=== PATIENT | female | born 2000 | race Hispanic/Latino ===

== ENCOUNTER 2019-04-22 11:16 | Inpatient (IN) | payer OTHER ==
[2019-04-22 11:52] VITALS: BMI 32.8
[2019-04-22] MEDS ORDERED: hydrALAZINE 20 MG/ML VIAL SLOW IVP PRN ×2 (12:02→15:06)
--- NOTE | 2019-04-22 12:27 | PDOC.FPROB ---
FMR OB H&P: HPI - History of Present Illness Chief Complaint: contractions Indentification: 18 yo G1 @ 40 weeks by LMP 9.5 sono History of Present Illness: 18 yo @ 40 weeks by LMP c/w 9.5 week sono presents for painful contractions that started last evening. Pt reports increase in contraction strenght and frequency since 5 am. Ctx every 5 min. Reports pos movement, denies LOF, bleeding, discharge. Primary Care Physician: Steve FMR OB H&P: Current - Care : 1 Para: 0 Gestational age: 40 Due date: 04/22/2019 Dating Criteria: LMP c/w 9.5 sono Total weight gain: 43 lbs Course/Complications: Excessive weight gain in - OB Labs Blood type: A RH: positive Antibody Screen: negative HIV: negative RPR: negative HepBsAg: negative Rubella: immune Quad screen: negative Urine drug screen: not done Gonorrhea: negative Chlamydia: negative Pap Smear: restaurant manager 1 hour gtt: 88 GBS: negative - First Trimester Ultrasound First trimester: LMP c/w dates. 9.5 sono. - Anatomy Survey Anatomy survey: Normal, female FMR OB H&P: History - Past Medical History PMH: None - OB History OB History: First - [employer] History [employer] History: Menses @ 11, regular cycle - Surgical History Sx History: None - Social History Social History: Denies alcohol, tobacco and drug use FMR OB H&P: Medications - Current Home Medications: Medication Instructions Recorded Confirmed Type Ferrous Sulfate [Iron] 325 mg PO DAILY 04/22/19 04/22/19 History Pnv No.95/Ferrous Fum/Folic AC 1 each PO DAILY 04/22/19 04/22/19 History [ [place]] Allergies/Adverse Reactions: Allergies Allergy/AdvReac Type Severity Reaction Status Date / Time No Known Allergies Allergy Unverified 04/22/19 11:52 FMR OB H&P: ROS - Review of Systems General: denies: fever/chills, night sweats Eyes: denies: vision changes ENT: denies: nasal congestion, rhinorrhea Cardiovascular: denies: chest pain, paroxysmal nocturnal dyspnea Respiratory: denies: cough, congestion, shortness of breath Gastrointestinal: denies: abdominal pain, cramping, nausea, vomiting, diarrhea, constipation Genitourinary (Female): denies: vaginal pain, vaginal bleeding, vaginal pressure Musculoskeletal: denies: pain Neurologic: denies: syncope, weakness FMR OB H&P: Vital Signs - Maternal Vital signs: Vital Signs - First Documented Temp Pulse Resp BP Pulse Ox 98.3 F 91 18 124/80 98 04/22/19 11:49 04/22/19 11:49 04/22/19 11:49 04/22/19 11:49 04/22/19 11:49 - Heart Tones Baseline: 145 Variability: moderate Acceleration: present Deceleration: absent Category: category 1 [place] contractions every: 5-6 min FMR OB H&P: Physical Exam - Physical Exam General: NAD, awake, alert and oriented HEENT: normocephalic and atraumatic, PERRLA, EOMI, grossly normal vision, grossly normal hearing Neck: trachea midline Heart: RRR, normal S1/S2, no murmurs/rubs/gallops, pulses present, no edema General: CTAB, no respiratory distress, good air movement, no rales/rhonchi, no wheezing, no retractions Abdomen: soft, gravid, non-tender Musculoskeletal: FROM in all four extremities Neurological: no focal deficit Skin: no rash - Pelvic Exam SVE: 3/75/0 Membranes: Bulging, intact Presentation: Vertex Estimated Weight: 7 lbs FMR OB H&P: A/P - Problem List (1) Term Current Visit: Yes Status: Acute Code(s): Z34.90 - ENCNTR FOR SUPRVSN OF NORMAL , UNSP, UNSP TRIMESTER Disposition: 1) TIUP with painful contractions - pt debra every 5 min on monitor - will obs and reassess for cervical change in 2 hours. Discussion: Date/Time: 04/22/19 0837 This H&P was discussed with Dr. Carney who agrees with the above documentation and plan. Addendum - Attending - Attending Attestation Date/Time: 04/22/19 2511 I personally evaluated the patient and discussed the management with Dr. Solitario. I agree with the History, Examination, Assessment and Plan documented above.
[2019-04-22] MEDS: Lactated Ringer's 1,000 ML IV SCH ×2 (14:58→18:41)
--- NOTE | 2019-04-22 15:05 | PDOC.EVN ---
Event Note - Event Note Event Note: 2 hour cervical check 4-5cm/100/0, bulging bag pt continues to contract q5 min will admit to l&d Agree with above. Will admit for labor. Watch progress. Expect .
[2019-04-22] MEDS ORDERED: Ibuprofen 800 MG TAB PO PRN (15:06)
[2019-04-22] MEDS ORDERED: Lidocaine 1% (PF) 30 ML VIAL SC PRN (15:06)
[2019-04-22] MEDS ORDERED: Misoprostol 200 MCG TAB PR PRN (15:06)
[2019-04-22] MEDS ORDERED: Docusate 100 MG CAP PO PRN (15:06)
[2019-04-22] MEDS ORDERED: HYDROcodone/Acetaminophen 5/325 mg Tablet PO PRN (15:06)
[2019-04-22] MEDS ORDERED: Ondansetron PF 4 MG/2 ML Vial IVP PRN (15:06)
[2019-04-22] MEDS ORDERED: Promethazine HCl 25 MG/ML VIAL IM PRN (15:06)
[2019-04-22] MEDS ORDERED: NS / Oxytocin 40 units/1000ml 1,000 ML IV PRN (15:06)
[2019-04-22] MEDS ORDERED: NS w/ Oxytocin 10 units 500 ML IV SCH (15:15)
[2019-04-22 15:26] LABS: Hemoglobin 11.3 g/dL (12.0-16.0); Mean Corpuscular HGB CONC 34.5 g/dL (32.0-36.0); Mean Corpuscular Hemoglobin 30.7 pg (25.0-35.0); Mean Corpuscular Volume 88.8 fL (78.0-98.0); Mean Platelet Volume 11.9 fL (7.4-10.4); Platelet Count 160 thou/uL (130-400); RBC Distribution Width 12.3 % (11.5-14.5); Red Blood Cell (RBC) Count 3.68 mill/uL (4.00-5.20); White Blood Cell (WBC) Count 11.6 thou/uL (4.8-10.8)
[2019-04-22 16:00] LABS: HBSAg Index 0.21 S/CO (0-0.99); Hep B Surf Ag Non-Reactive S/CO (NonReactive); Syphilis Antibody Nonreactive (Nonreactive); Syphilis Antibody Index 0.04 S/CO (<1.00 Non-Reactive)
[2019-04-22] MEDS: Butorphanol Tartrate 1 MG/ML VIAL SLOW IVP PRN ×2 (16:44→22:32)
--- NOTE | 2019-04-22 16:49 | PDOC.LDPN ---
Labor & Delivery Progress Note - Subjective Subjective: painful contractions, no concerns - Objective Vital signs reviewed and normal: yes General: resting, breathing through contractions Uterine fundus: non tender Dilation: 6 Effacement: 90% Station: -1 FHT: category 1 (150 baseline pos accels no late or variable decels, cat 1), variability present [place] contractions every: 6 min Procedures: AROM, clear fluid seen. Bedside US confirmed vertex prior to AROM. AROM: clear fluid Resuscitative measures: maternal IV fluids, maternal position change - Assessment (1) Term Code(s): Z34.90 - ENCNTR FOR SUPRVSN OF NORMAL , UNSP, UNSP TRIMESTER Current Visit: Yes Status: Acute Plan: continue plan of care -: 1) TIUP, in labor - AROM, clear fluid seen @ 1635 - cervical check /-1 - fhts cat 1 and ctx every 6 min - cont plan of care, cervical checks q2hr - stadol prn for pain Addendum - Attending - Attending Attestation Date/Time: 04/22/191948 I personally evaluated the patient and discussed the management with Dr. Solitario. I agree with the Assessment and Plan documented above.
--- NOTE | 2019-04-22 18:44 | PDOC.LDPN ---
Labor & Delivery Progress Note - Subjective Subjective: painful contractions, vaginal pressure, no concerns - Objective Vital signs reviewed and normal: yes General: breathing through contractions Uterine fundus: non tender Dilation: 8 Effacement: 100% Station: 0 FHT: category 1 (baseline 155-160), variability present Resuscitative measures: maternal IV fluids, maternal position change - Assessment (1) Term Code(s): Z34.90 - ENCNTR FOR SUPRVSN OF NORMAL , UNSP, UNSP TRIMESTER Current Visit: Yes Status: Acute Plan: continue plan of care -: TIUP, in labor - stadol prn for pain - FHTs cat 1, lo late or variable decelerations - cervical check q2hr + prn, most recent Addendum - Attending - Attending Attestation Date/Time: 04/22/19 8185 I personally evaluated the patient and discussed the management with Dr. Solitario. I agree with the Assessment and Plan documented above.
--- NOTE | 2019-04-22 22:53 | PDOC.LDPN ---
Labor & Delivery Progress Note - Subjective Subjective: painful contractions, no concerns - Objective Vital signs reviewed and normal: yes General: NAD, breathing through contractions Uterine fundus: non tender Dilation: 9 Effacement: 100% Station: 0 FHT: category 1 (baseline 130s pos accels no late or variable decelerations), variability present [facility] contractions every: 7 min Resuscitative measures: maternal IV fluids, maternal position change - Assessment (1) Term Code(s): Z34.90 - ENCNTR FOR SUPRVSN OF NORMAL , UNSP, UNSP TRIMESTER Current Visit: Yes Status: Acute Plan: continue plan of care, pitocin for augmentation -: 1) TIUP in labor - Pts contractions have diminished in strength and frequency - previous cervical check by nurse 9/100/0 - she is unchanged from previous exam and remains 9/100/0 after 2 hours - will begin pitocin for augmentation - recheck cervix q2hr and prn - consider IUPC if ctx pattern difficult to monitor - stadol prn for pain Addendum - Attending - Attending Attestation Date/Time: 04/22/19 6633 I personally evaluated the patient and discussed the management with Dr. Solitario. Agree with pitocin due to poor progress and spacing UCs. I agree with the Assessment and Plan documented above.
--- NOTE | 2019-04-23 02:51 | PDOC.EVN ---
Event Note - Event Note Event Note: Called to assist with delivery for Dr. Carney while he was attending another. with protracted active stage and pushing ~1:45 upon my arrival with most recently category 2 FHTs, variable decels with pushing, mod variability. subsequently delivered atraumatically, straight OA. Placed skin to skin and cried after drying. Cord clamped and cut and blood sampled. Placenta delivered via CCT, intact, 3vc. Uterus firmed with IV pitocin and bimanual massage. Difficulty with inspecting laceration d/t significant pain with exam. Will plan to move to OR with anesthesia and Dr. Carney for exam and repair.
[2019-04-23] MEDS ORDERED: MORPHINE 5 MG/10 ML PF VIAL ONE (03:01)
[2019-04-23] MEDS ORDERED: Fentanyl 100 MCG/2 ML VIAL ONE (03:01)
[2019-04-23] MEDS ORDERED: PHENYLEPHRINE-NS 100 MCG/ML 10 ML SYRINGE ONE (03:02)
[2019-04-23] MEDS ORDERED: ePHEDrine/0.9% NaCl/PF SYRINGE 50 mg/10 ml ONE (03:02)
[2019-04-23] MEDS ORDERED: Midazolam HCl 2 mg/2 ml Vial ONE (03:02)
[2019-04-23] MEDS ORDERED: Dexamethasone 4 mg/ml Vial ONE (03:31)
[2019-04-23] MEDS ORDERED: Ondansetron PF 4 MG/2 ML Vial ONE ×2 (03:31→07:48)
[2019-04-23] MEDS ORDERED: Ketorolac Tromethamine 30 MG/ML VIAL ONE ×2 (03:33→07:48)
[2019-04-23] MEDS ORDERED: Ondansetron HCl/PF 4 MG/2 ML Vial IVP PRN (03:38)
[2019-04-23] MEDS ORDERED: Naloxone HCl 0.4 mg/ml Vial IVP PRN ×2 (03:38)
[2019-04-23] MEDS ORDERED: Meperidine HCl/PF 25 MG/ML VIAL SLOW IVP PRN (03:38)
[2019-04-23] MEDS ORDERED: L&D-Morphine 4 MG/ML VIAL SLOW IVP PRN (03:38)
[2019-04-23] MEDS ORDERED: Ketorolac Tromethamine 30 MG/ML VIAL IVP PRN (03:38)
[2019-04-23] MEDS ORDERED: HYDROmorphone 2 MG/ML VIAL SLOW IVP PRN (03:38)
[2019-04-23] MEDS ORDERED: diphenhydrAMINE 50 MG/ML VIAL IVP PRN (03:38)
[2019-04-23] MEDS ORDERED: Ondansetron PF 4 MG/2 ML Vial IVP PRN (03:38)
[2019-04-23] MEDS ORDERED: Promethazine HCl 25 MG SUPP PR PRN (03:38)
[2019-04-23] MEDS ORDERED: Promethazine HCl 25 MG/ML VIAL IM PRN (03:38)
[2019-04-23] MEDS ORDERED: Naloxone HCl 0.4 mg/ml Vial IV PRN (03:38)
[2019-04-23] MEDS ORDERED: Communication Order-Pharmacy FS SCH (03:45)
[2019-04-23] MEDS ORDERED: CEFAZOLIN 1 GM VIAL ONE (03:59)
[2019-04-23] MEDS ORDERED: Oxytocin 10 UNITS/ML VIAL ONE (04:01)
--- NOTE | 2019-04-23 05:41 | OP ---
DATE OF PROCEDURE: 04/23/2019 PREOPERATIVE DIAGNOSIS: Vaginal lacerations, status post vaginal delivery. POSTOPERATIVE DIAGNOSIS: Third-degree laceration with stellate vaginal lacerations. PROCEDURE: Repair of the vagina. HAT BLOCK BENCH HAND SURGEON: Dr. Nichols and Dr. Solitario. ANESTHESIA: Spinal. ESTIMATED BLOOD LOSS: 200 mL. COMPLICATIONS: None. FINDINGS: 1. Intact rectal mucosa. 2. Third-degree disruption of the sphincter. 3. Stellate laceration of the distal vagina. TECHNIQUE IN DETAIL: After good spinal anesthesia was achieved, the patient was prepped and draped in usual sterile fashion. The patient could be examined at this time. It could be seen that the rectum was intact. The sphincter was disrupted and there was a stellate laceration of the vaginal floor. The third-degree laceration was repaired in segments using 2-0 Vicryl suture. The vaginal lacerations were exposed and then were closed using running locking suture of 2-0 chromic. Once the vagina was closed, the sub mucosa of the vagina was closed using a running suture of chromic. The final layer was closed in an interrupted fashion using 2-0 chromic. At the end of the case, a rectal was done and there was no evidence of defect. A Rooney catheter was placed. The vagina was seen to be hemostatic and the patient was taken back to Labor and Delivery in good condition. Job ID: [id number] [facility]
--- NOTE | 2019-04-23 06:33 | OP ---
DATE OF PROCEDURE: 04/23/2019 REPORT TYPE: Vaginal Delivery Note. LOCATION: [place], [place]. DELIVERING PHYSICIANS: 1. Dr. Jason Carney. 2. Dr. Bertin Solitario. 3. Dr. Jae Maria. 4. Dr. Floyd Nichols. PROCEDURES: Spontaneous vaginal delivery. ANESTHESIA: Spinal with conscious sedation for repair of complicated third-degree laceration. ESTIMATED BLOOD LOSS: 750 mL. PREOPERATIVE DIAGNOSES: 1. Term intrauterine in labor. 2. Excessive weight gain in . POSTOPERATIVE DIAGNOSES: 1. Term intrauterine , delivered. 2. Excessive weight gain in . INDICATIONS: The patient is a 18-year-old female, G1, P0, who presents in active labor. DELIVERY NOTE: The patient is a 18-year-old, G1, P0, at 40.1 weeks, who delivered a viable female infant at 0229. Following an uneventful antepartum course, a vigorous female was delivered over an intact perineum in the occipitoanterior position. The anterior shoulder and the remainder of the body delivered. There was a nuchal cord x1. The head was held down and the mouth was bulb suctioned and vigorous stimulation was applied to the infant. At this point, the cord was clamped and cut and cord blood was collected. The placenta delivered intact with three-vessel cord noted. Fundal massage was performed and the uterus is firm. The cervix and vagina were inspected, the cervix was found to be free of lacerations and there was a third-degree perineal laceration with stellate vaginal extensions inward. The patient was taken to the OR and spinal anesthesia was administrated for repair of a third-degree laceration. The infant went to nursery in good condition for routine care. Apgars were eight and nine at 1 and 5 minutes respectively. The patient tolerated delivery and repair well and will stay in Labor and Delivery for continued recovery with a Rooney to remain in place and prophylactic antibiotics including Ancef 2 g q.8 hours will be given. Job ID: [id number] Dr. Nichols was present to attend this delivery as I was delivering another pt. at the same time. [facility]
[2019-04-23] MEDS ORDERED: Benzocaine-Menthol 82.5 ML CAN TOP PRN (06:57)
[2019-04-23] MEDS ORDERED: Bisacodyl 10 MG SUPP PR PRN (06:57)
[2019-04-23] MEDS ORDERED: NS / Oxytocin 40 units/1000ml 1,000 ML IV SCH (06:57)
[2019-04-23] MEDS ORDERED: hydrALAZINE 20 MG/ML VIAL SLOW IVP PRN (06:57)
[2019-04-23] MEDS ORDERED: HYDROcodone/Acetaminophen 5/325 mg Tablet PO PRN ×2 (06:57)
[2019-04-23] MEDS ORDERED: Misoprostol 200 MCG TAB VAG PRN (06:57)
[2019-04-23] MEDS ORDERED: Milk Of Magnesia 30 ML UDCUP PO PRN (06:57)
[2019-04-23] MEDS ORDERED: Dexamethasone 20 MG/5 ML VIAL ONE (07:48)
[2019-04-23] MEDS: Ibuprofen 800 MG TAB PO SCH ×3 (09:36→22:09)
[2019-04-23] MEDS: Docusate Calcium (SURFAK) 240 MG CAP PO SCH ×2 (09:37→22:09)
[2019-04-23] MEDS: ceFAZolin 1 GM/D5W 1 GM in Premix Bag 1 BAG IVPB SCH ×2 (13:11→22:37)
[2019-04-23] MEDS: Ferrous Sulfate 325 MG TAB PO SCH ×2 (17:19→17:20)
[2019-04-23] MEDS: Lactated Ringer's 1,000 ML IV SCH (17:19)
[2019-04-23] MEDS ORDERED: Sodium Chloride 0.9% 10 ML ONE (21:58)
[2019-04-24] MEDS: Lactated Ringer's 1,000 ML IV SCH ×4 (00:55→21:49)
[2019-04-24] MEDS ORDERED: Sodium Chloride 0.9% 10 ML ONE (05:42)
[2019-04-24 05:57] LABS: Hemoglobin 8.2 g/dL (12.0-16.0); Mean Corpuscular HGB CONC 34.1 g/dL (32.0-36.0); Mean Corpuscular Hemoglobin 31.4 pg (25.0-35.0); Mean Corpuscular Volume 91.9 fL (78.0-98.0); Mean Platelet Volume 11.6 fL (7.4-10.4); Platelet Count 119 thou/uL (130-400); RBC Distribution Width 12.6 % (11.5-14.5); White Blood Cell (WBC) Count 13.5 thou/uL (4.8-10.8)
[2019-04-24] MEDS: ceFAZolin 1 GM/D5W 1 GM in Premix Bag 1 BAG IVPB SCH ×3 (05:59→21:48)
[2019-04-24] MEDS: Ibuprofen 800 MG TAB PO SCH ×3 (06:03→21:48)
[2019-04-24] MEDS ORDERED: Adacel (T-DAP) 0.5 ML SYRINGE IM ONE (06:57)
--- NOTE | 2019-04-24 07:47 | PDOC.PP ---
Post Progress Note Post Day #: 1 Subjective: 18 yo G1 now P1 pp day 1 s/p w/ 3rd degree perineal laceration with stellate posterior vaginal extensions. She is doing well and reports her pain is well controlled. She has had velasco removed, no urine since velasco removal. Ambulating and tolerating PO. PO intake tolerated: yes Flatus: yes Ambulation: yes Vital Signs (12 hours) Temp Pulse Resp BP 04/24/19 00:45 98.5 F 72 18 110/65 04/23/19 20:11 98.4 F 89 18 120/76 Weight Weight 76.204 kg - Physical Examination General: NAD Cardiovascular: no m/r/g, RRR Respiratory: clear to auscultation bilaterally, non-labored breathing Abdominal: + bowel sounds, no distention, appropriately TTP Extremities: negative homans (B) Neurological: no gross focal deficits Psychiatric: normal affect Result Diagrams: 04/24/19 04:37 Additional Labs: Post Labs Blood Type A POSITIVE 04/22/19 15:37 Hep Bs Antigen Non-Reactive S/CO (NonReactive) 04/22/19 15:02 (1) Term Code(s): Z34.90 - ENCNTR FOR SUPRVSN OF NORMAL , UNSP, UNSP TRIMESTER Status: Resolved (2) Third degree laceration of perineum during delivery, Code(s): O70.20 - THIRD DEGREE PERINEAL LACERATION DURING DELIVERY, UNSP Status: Acute - Assessment/Plan 1) w/ 3rd degree perineal laceration - velasco out yesterday - will cont bowel regimen and monitor today - plan for possible dc to home tomorrow - no urine since velasco removal, will monitor IsOs - reports pain well controlled Addendum - Attending - Attending Attestation Date/Time: 04/25/19 9135 I personally evaluated the patient and discussed the management with Dr. Solitario I agree with the History, Examination, Assessment and Plan documented above with any addition or exceptions noted below.
[2019-04-24] MEDS: Ferrous Sulfate 325 MG TAB PO SCH ×2 (09:34→17:34)
[2019-04-24] MEDS: Docusate Calcium (SURFAK) 240 MG CAP PO SCH ×2 (09:34→21:48)
[2019-04-25] MEDS: Ibuprofen 800 MG TAB PO SCH (06:40)
[2019-04-25] MEDS: Lactated Ringer's 1,000 ML IV SCH (07:16)
--- NOTE | 2019-04-25 08:27 | PDOC.PP ---
Post Progress Note Post Day #: 2 Subjective: 18 yo G1 now P1 pp day 2 s/p w/ 3rd degree perineal laceration. Pt doing well and reports pain controlled with current ibuprofen and tylenol. Normal voiding, passing flatus, ambulating and tolerating PO. PO intake tolerated: yes Flatus: yes Ambulation: yes Weight Weight 76.204 kg - Physical Examination General: NAD Cardiovascular: no m/r/g, RRR Respiratory: clear to auscultation bilaterally, non-labored breathing Abdominal: + bowel sounds, no distention, appropriately TTP Neurological: no gross focal deficits Psychiatric: normal affect Result Diagrams: 04/24/19 04:37 Additional Labs: Post Labs Blood Type A POSITIVE 04/22/19 15:37 Hep Bs Antigen Non-Reactive S/CO (NonReactive) 04/22/19 15:02 (1) Term Code(s): Z34.90 - ENCNTR FOR SUPRVSN OF NORMAL , UNSP, UNSP TRIMESTER Status: Resolved (2) Third degree laceration of perineum during delivery, Code(s): O70.20 - THIRD DEGREE PERINEAL LACERATION DURING DELIVERY, UNSP Status: Acute - Assessment/Plan 1) w/ 3rd degree perineal laceration - will plan to dc to home today with bowel regimen - pain control with cont ibuprofen and tylenol, has not required narcotics - f/u PNC 1 week - undecided PP CC Addendum - Attending - Attending Attestation Date/Time: 04/26/19 0850 I evaluated the patient and discussed the management with Dr. Solitario. I agree with the History, Examination, Assessment and Plan documented above.
[2019-04-25 08:59] VITALS: BP 122/73; TEMP 98.2
[2019-04-25] MEDS: Ferrous Sulfate 325 MG TAB PO SCH (09:16)
[2019-04-25] MEDS: Docusate Calcium (SURFAK) 240 MG CAP PO SCH (09:16)
== END 2019-04-25 13:10 | disposition home or self-care (01) | DRG 768 ==
LOC: L&D/OP 11:16 → L&D 14:33 → 3SW 04-23 17:10
PROVIDERS: ADMIT Obstetrics & Gynecology; ATTEND Obstetrics & Gynecology
PROC: 10E0XZZ Delivery of Products of Conception, External Approach (ICD-10-PCS; principal; 2019-04-23)
PROC: 0DQR0ZZ Repair Anal Sphincter, Open Approach (ICD-10-PCS; 2019-04-23)
PROC: 10907ZC Drainage of Amniotic Fluid, Therapeutic from Products of Conception, Via Natural or Artificial Opening (ICD-10-PCS; 2019-04-23)
DX: O69.81X0 Labor and delivery complicated by cord around neck, without compression, not applicable or unspecified (principal); Z37.0 Single live birth; O70.20 Third degree perineal laceration during delivery, unspecified; Z3A.40 40 weeks gestation of pregnancy
CPT/HCPCS: 36415; 85027; 86780; 86850; 86900; 86901; 87340; J0595; J0690; J1100; J1885; J2001; J2250; J2274; J2405; J2590; J3010; J3490